=== PATIENT | female | born 1965 | race Caucasian/White ===

== ENCOUNTER → 2022-10-04 09:54 | Outpatient (BNVA) | payer OTHER, SELFPAY | PROVIDERS: PCP Physician Assistant; Visit Provider Nurse Practitioner Family | DX: S73.191A Other sprain of right hip, initial encounter (principal); M47.816 Spondylosis without myelopathy or radiculopathy, lumbar region; G57.53 Tarsal tunnel syndrome, bilateral lower limbs; M25.551 Pain in right hip | CPT/HCPCS: 99202 ==

== ENCOUNTER → 2022-11-15 10:04 | Outpatient (BNVA) | payer OTHER, SELFPAY | PROVIDERS: PCP Physician Assistant; Visit Provider Nurse Practitioner Family | DX: Z13.89 Encounter for screening for other disorder (principal) ==

== ENCOUNTER 2022-12-02 07:26 | Outpatient (REF) | payer OTHER, SELFPAY ==
--- NOTE | ~2022-12-02 | MR_ITS ---
EXAMINATION: MR ANGIOGRAPHY BRAIN WITHOUT CONTRAST CLINICAL INFORMATION: Migraines. COMPARISON: Outside brain MRI dated 03/11/2019. TECHNIQUE: 3-D [id number] MR angiography of the [place] obtained. FINDINGS: The vertebrobasilar vasculature is normal. The posterior cerebral arteries are widely patent and normal in appearance. The internal carotid arteries are of normal caliber bilaterally. The GOVIND vasculature is normal. The MCA vessels bilaterally are widely patent. No vascular malformation or aneurysm is identified. MR/MR angio head wo con IMPRESSION: Normal MRA of the head.
== END 2022-12-02 07:27 | disposition home or self-care (01) ==
LOC: HO.MRI 07:26
PROVIDERS: Visit Provider Nurse Practitioner Family
DX: G43.909 Migraine, unspecified, not intractable, without status migrainosus (principal); I10 Essential (primary) hypertension
CPT/HCPCS: 70544